=== PATIENT | male | born 1990 | race Hispanic/Latino ===

== ENCOUNTER 2021-05-22 00:16 | Emergency (ER) | payer OTHER ==
[~2021-05-22] VITALS: Ht 180.3 cm; Wt 98.4 kg
[2021-05-22 01:22] LABS: BASOPHILS % (AUTO) 0.4 % (0.0-5.0); EOSINOPHILS % (AUTO) 0.1 % (0.0-8.0); HEMATOCRIT 48.1 % (42-54); LYMPHOCYTES % (AUTO) 15.8 % (21.0-51.0); MEAN CORPUSCULAR HEMOGLOBIN 30.2 pg (27.0-33.0); MEAN CORPUSCULAR HGB CONC 33.7 g/dL (32.0-36.0); MEAN CORPUSCULAR VOLUME 89.6 fL (79-99); MONOCYTES % (AUTO) 8.5 % (3.0-13.0); NEUTROPHILS % (AUTO) 74.3 % (40.0-77.0); PLATELET COUNT (AUTO) 277 K/uL (130-400); RED BLOOD CELL COUNT(AUTO) 5.37 MIL/uL (4.50-6.20); RED CELL DISTRIBUTION WIDTH 12.6 % (11.0-15.5); WHITE BLOOD COUNT (AUTO) 12.7 K/uL (4.8-10.8)
[2021-05-22 01:24] LABS: APPEARANCE,URINE Clear (CLEAR); BILIRUBIN,URINE Negative (NEGATIVE); COLOR,URINE Yellow (YELLOW); GLUCOSE, URINE (UA) Negative (NEGATIVE); KETONES,URINE Trace mg/dL (NEGATIVE); LEUKOCYTE ESTERASE ,URINE Negative (NEGATIVE); NITRATE,URINE Negative (NEGATIVE); OCCULT BLOOD,URINE Small (NEGATIVE); PH,URINE 5.5 (5.0-8.0); PROTEIN,URINE POS 1+ mg/dL (NEGATIVE)
[2021-05-22 01:29] LABS: AMPHET/METH SCREEN,URINE POSITIVE (NEGATIVE); BARBITURATE SCREEN, URINE NEGATIVE (NEGATIVE); BENZODIAZEPINES SCREEN,URINE NEGATIVE (NEGATIVE); CANNABINOID SCREEN,URINE NEGATIVE (NEGATIVE); COCAINE SCREEN,URINE POSITIVE (NEGATIVE); OPIATE SCREEN,URINE NEGATIVE (NEGATIVE); PHENCYCLIDINE SCREEN,URINE NEGATIVE (NEGATIVE)
[2021-05-22] MEDS ORDERED: 0.9%NACL 1000ML 1,000 ML IV ONE ×2 (01:30→03:30)
[2021-05-22] MEDS ORDERED: LORAZEPAM 1 MG TABLET PO ONE (01:30)
[2021-05-22 01:31] LABS: RBC,URINE 0-1 /HPF (0-1)
[2021-05-22 01:32] LABS: BACTERIA,URINE Rare /HPF (None Seen); MUCUS,URINE Moderate LPF (None Seen); SQUAMOUS EPITHELIAL CELL,UR Few /HPF (0-2)
[2021-05-22 01:37] LABS: ALBUMIN 4.3 g/dL (3.5-5.0); BILIRUBIN,TOTAL 1.1 mg/dL (0.2-1.0); CREATININE 1.1 mg/dL (0.5-1.5); MAGNESIUM 1.3 mg/dL (1.80-2.40); TOTAL PROTEIN, SERUM 7.5 g/dL (6.0-8.3)
[2021-05-22 01:40] LABS: POTASSIUM 2.9 mmol/L (3.5-5.1)
[2021-05-22] MEDS ORDERED: POTASSIUM BICARB/CIT AC 25 MEQ TABLET.EFF ONE (01:46)
[2021-05-22] MEDS ORDERED: ONDANSETRON 4MG INJ ONE (01:46)
[2021-05-22] MEDS ORDERED: MAGNESIUM OXIDE 400 MG TABLET PO SCH ×2 (02:30→04:00)
[2021-05-22] MEDS ORDERED: MAGNESIUM OXIDE 400 MG TABLET PO ONE (02:54)
[2021-05-22 03:44] VITALS: BP 131/89
== END 2021-05-22 04:01 | disposition home or self-care (01) ==
LOC: EDH 00:16
DX: E83.42 Hypomagnesemia (principal); E86.0 Dehydration; E87.6 Hypokalemia; T40.5X5A Adverse effect of cocaine, initial encounter; T51.0X1A Toxic effect of ethanol, accidental (unintentional), initial encounter; I10 Essential (primary) hypertension; Z79.899 Other long term (current) drug therapy; F17.200 Nicotine dependence, unspecified, uncomplicated; Y99.8 Other external cause status; Y92.89 Other specified places as the place of occurrence of the external cause
CPT/HCPCS: 36415; 71045; 80053; 80305; 81001; 83735; 85025; 87088; 93005; 96374; 99285; J2405

== ENCOUNTER 2021-06-18 16:23 | Emergency (ER) | payer SELFPAY | END 2021-06-18 16:49 | disposition left against medical advice (07) | LOC: EDH 16:23 | DX: R06.02 Shortness of breath (principal); Z53.21 Procedure and treatment not carried out due to patient leaving prior to being seen by health care provider ==

== ENCOUNTER 2021-08-26 09:46 | Emergency (ER) | payer OTHER ==
[~2021-08-26] VITALS: Ht 180.3 cm; Wt 90.7 kg
[2021-08-26] MEDS ORDERED: HYDROXYZINE 50MG VIAL 50 MG/ML VIAL IM SCH (10:30)
[2021-08-26 10:34] VITALS: BP 127/79
== END 2021-08-26 11:02 | disposition home or self-care (01) ==
LOC: EDH 09:46
DX: F41.9 Anxiety disorder, unspecified (principal); F14.90 Cocaine use, unspecified, uncomplicated; F17.210 Nicotine dependence, cigarettes, uncomplicated
CPT/HCPCS: 93005; 96372; 99283; J3410

== ENCOUNTER 2021-12-24 07:17 | Emergency (ER) | payer OTHER ==
[2021-12-24] MEDS ORDERED: KETOROLAC 30MG VIAL (30MG/ML) IVP ONE (07:30)
[2021-12-24] MEDS ORDERED: ONDANSETRON 4MG INJ IVP ONE (07:30)
[2021-12-24] MEDS ORDERED: LACTATED RINGERS 1000ML 1,000 ML IV ONE (07:30)
[2021-12-24 07:48] LABS: AMPHET/METH SCREEN,URINE NEGATIVE (NEGATIVE); BARBITURATE SCREEN, URINE NEGATIVE (NEGATIVE); BENZODIAZEPINES SCREEN,URINE NEGATIVE (NEGATIVE); CANNABINOID SCREEN,URINE NEGATIVE (NEGATIVE); COCAINE SCREEN,URINE NEGATIVE (NEGATIVE); PHENCYCLIDINE SCREEN,URINE NEGATIVE (NEGATIVE)
[2021-12-24 07:51] LABS: BASOPHILS % (AUTO) 0.3 % (0.0-5.0); EOSINOPHILS % (AUTO) 0.8 % (0.0-8.0); HEMATOCRIT 47.5 % (42-54); LYMPHOCYTES % (AUTO) 26.8 % (21.0-51.0); MEAN CORPUSCULAR HEMOGLOBIN 29.7 pg (27.0-33.0); MEAN CORPUSCULAR HGB CONC 34.1 g/dL (32.0-36.0); MEAN CORPUSCULAR VOLUME 87.2 fL (79-99); MONOCYTES % (AUTO) 6.7 % (3.0-13.0); NEUTROPHILS % (AUTO) 64.5 % (40.0-77.0); PLATELET COUNT (AUTO) 261 K/uL (130-400); RED BLOOD CELL COUNT(AUTO) 5.45 MIL/uL (4.50-6.20); RED CELL DISTRIBUTION WIDTH 12.7 % (11.0-15.5); WHITE BLOOD COUNT (AUTO) 9.6 K/uL (4.8-10.8)
[2021-12-24 07:57] LABS: APPEARANCE,URINE CLEAR (CLEAR); BILIRUBIN,URINE NEGATIVE (NEGATIVE); COLOR,URINE YELLOW (YELLOW); GLUCOSE, URINE (UA) NEGATIVE (NEGATIVE); KETONES,URINE 40 mg/dL (NEGATIVE); LEUKOCYTE ESTERASE ,URINE NEGATIVE (NEGATIVE); NITRATE,URINE NEGATIVE (NEGATIVE); OCCULT BLOOD,URINE TRACE-INTACT (NEGATIVE); PROTEIN,URINE TRACE mg/dL (NEGATIVE)
[2021-12-24 08:01] LABS: BACTERIA,URINE Rare /HPF (None Seen); MUCUS,URINE Few LPF (None Seen); RBC,URINE 0-1 /HPF (0-1); SQUAMOUS EPITHELIAL CELL,UR Rare /HPF (0-2)
[2021-12-24 08:19] LABS: ALBUMIN 3.9 g/dL (3.5-5.0); CREATININE 0.9 mg/dL (0.5-1.5); POTASSIUM 3.1 mmol/L (3.5-5.1); TOTAL PROTEIN, SERUM 7.2 g/dL (6.0-8.3)
[2021-12-24] MEDS ORDERED: ONDA4TAB10 PO (10:15)
[2021-12-24 10:28] VITALS: BP 137/71
[2021-12-26 17:10] LABS: OPIATES SCREEN URINE Negative ng/mL (Cutoff=300)
== END 2021-12-24 10:46 | disposition home or self-care (01) ==
LOC: EDH 07:17
DX: R07.89 Other chest pain (principal); R11.10 Vomiting, unspecified; F17.200 Nicotine dependence, unspecified, uncomplicated; Z79.1 Long term (current) use of non-steroidal anti-inflammatories (NSAID)
CPT/HCPCS: 99284; 96374; 71045; 96361; 96375; 84484; 80053; 80305; 83690; 85025; 36415; 81001; J7120; J2405; J1885

== ENCOUNTER 2022-08-07 21:45 | Emergency (ER) | payer BC, OTHER ==
[~2022-08-07] VITALS: Ht 180.3 cm; Wt 92.1 kg
[~2022-08-07 21:45] MED LIST: ONDA4TAB10 PO
[2022-08-07 22:00] VITALS: BP 123/81
[2022-08-07] MEDS ORDERED: MECLIZINE HCL 25 MG TABLET PO ONE (23:00)
[2022-08-07 23:10] LABS: BASOPHILS % (AUTO) 0.4 % (0.0-5.0); EOSINOPHILS % (AUTO) 1.3 % (0.0-8.0); HEMATOCRIT 51.3 % (42-54); LYMPHOCYTES % (AUTO) 32.1 % (21.0-51.0); MEAN CORPUSCULAR HEMOGLOBIN 29.9 pg (27.0-33.0); MEAN CORPUSCULAR HGB CONC 33.7 g/dL (32.0-36.0); MEAN CORPUSCULAR VOLUME 88.8 fL (79-99); MONOCYTES % (AUTO) 6.2 % (3.0-13.0); NEUTROPHILS % (AUTO) 59.2 % (40.0-77.0); PLATELET COUNT (AUTO) 272 K/uL (130-400); RED BLOOD CELL COUNT(AUTO) 5.78 MIL/uL (4.50-6.20); RED CELL DISTRIBUTION WIDTH 11.9 % (11.0-15.5); WHITE BLOOD COUNT (AUTO) 9.6 K/uL (4.8-10.8)
[2022-08-07 23:25] LABS: APPEARANCE,URINE CLEAR (CLEAR); BILIRUBIN,URINE NEGATIVE (NEGATIVE); COLOR,URINE LIGHT-YELLOW (YELLOW); GLUCOSE, URINE (UA) NEGATIVE (NEGATIVE); KETONES,URINE 10 mg/dL (NEGATIVE); LEUKOCYTE ESTERASE ,URINE NEGATIVE Leu/uL (NEGATIVE); NITRATE,URINE NEGATIVE (NEGATIVE); PH,URINE 6.5 (5.0-8.0); PROTEIN,URINE NEGATIVE (NEGATIVE)
[2022-08-07 23:27] LABS: POTASSIUM 3.8 mmol/L (3.5-5.1)
[2022-08-07] MEDS ORDERED: PANT40TA54 PO (23:28)
[2022-08-07] MEDS ORDERED: MECL-160 PO (23:28)
[2022-08-07 23:30] LABS: OCCULT BLOOD,URINE NEGATIVE (NEGATIVE)
[2022-08-07 23:32] LABS: ALBUMIN 4.3 g/dL (3.5-5.0); TOTAL PROTEIN, SERUM 7.6 g/dL (6.0-8.3)
[2022-08-07 23:35] LABS: AMPHET/METH SCREEN,URINE NEGATIVE (NEGATIVE); BARBITURATE SCREEN, URINE NEGATIVE (NEGATIVE); BENZODIAZEPINES SCREEN,URINE NEGATIVE (NEGATIVE); CANNABINOID SCREEN,URINE NEGATIVE (NEGATIVE); COCAINE SCREEN,URINE NEGATIVE (NEGATIVE); OPIATE SCREEN,URINE NEGATIVE (NEGATIVE); PHENCYCLIDINE SCREEN,URINE NEGATIVE (NEGATIVE)
[2022-08-07 23:43] LABS: B-TYPE NATRIURETIC PEPTIDE < 5 pg/mL (0-100)
== END 2022-08-08 00:59 | disposition home or self-care (01) ==
LOC: EDH 21:45
DX: R07.89 Other chest pain (principal); R42 Dizziness and giddiness; R11.0 Nausea; F41.9 Anxiety disorder, unspecified; K21.9 Gastro-esophageal reflux disease without esophagitis; F17.200 Nicotine dependence, unspecified, uncomplicated; Z79.899 Other long term (current) drug therapy
CPT/HCPCS: 36415; 70450; 71045; 80053; 80305; 81003; 82550; 83690; 83880; 84484; 85025; 93005

== ENCOUNTER 2022-09-09 09:21 | Emergency (ER) | payer BC ==
[~2022-09-09] VITALS: Ht 180.3 cm; Wt 90.7 kg
[~2022-09-09 09:21] MED LIST changes: +MECL-160 PO; +PANT40TA54 PO
[2022-09-09 09:42] VITALS: BP 134/88
[2022-09-09] MEDS ORDERED: ONDANSETRON 4MG INJ IV ONE (10:00)
[2022-09-09] MEDS ORDERED: PANTOPRAZOLE 40 MG/VIAL IV ONE (10:00)
[2022-09-09] MEDS ORDERED: MAG/ALUM/SIMETH 30 ML UDCUP PO ONE (10:00)
[2022-09-09] MEDS ORDERED: LIDOCAINE HCL 2% VISCOUS 15 ML UDCUP PO ONE (10:00)
[2022-09-09] MEDS ORDERED: DICYCLOMINE HCL 10 MG/5 ML ML PO ONE (10:00)
[2022-09-09 10:22] LABS: BASOPHILS % (AUTO) 0.3 % (0.0-5.0); EOSINOPHILS % (AUTO) 0.1 % (0.0-8.0); HEMATOCRIT 53.3 % (42-54); LYMPHOCYTES % (AUTO) 38.3 % (21.0-51.0); MEAN CORPUSCULAR HEMOGLOBIN 29.4 pg (27.0-33.0); MEAN CORPUSCULAR HGB CONC 32.8 g/dL (32.0-36.0); MEAN CORPUSCULAR VOLUME 89.4 fL (79-99); PLATELET COUNT (AUTO) 346 K/uL (130-400); RED BLOOD CELL COUNT(AUTO) 5.96 MIL/uL (4.50-6.20); RED CELL DISTRIBUTION WIDTH 12.2 % (11.0-15.5)
[2022-09-09 10:46] LABS: POTASSIUM 3.5 mmol/L (3.5-5.1)
[2022-09-09 10:47] LABS: ALBUMIN 4.5 g/dL (3.5-5.0); TOTAL PROTEIN, SERUM 8.3 g/dL (6.0-8.3)
[2022-09-09] MEDS ORDERED: ESOM40CA PO (10:57)
== END 2022-09-09 11:20 | disposition home or self-care (01) ==
LOC: EDH 09:21
DX: K29.20 Alcoholic gastritis without bleeding (principal); F17.200 Nicotine dependence, unspecified, uncomplicated; Z79.899 Other long term (current) drug therapy
CPT/HCPCS: 99284; 96374; 96375; 84484; 80053; 83690; 85025; 36415; 93005; J2405; C9113

== ENCOUNTER 2022-09-11 16:06 | Emergency (ER) | payer BC ==
[~2022-09-11] VITALS: Ht 180.3 cm; Wt 90.7 kg
[2022-09-11 16:06] VITALS: BP 127/82
[~2022-09-11 16:06] MED LIST changes: +ESOM40CA PO
== END 2022-09-11 19:10 | disposition left against medical advice (07) ==
LOC: EDH 16:06
DX: R10.13 Epigastric pain (principal); Z53.1 Procedure and treatment not carried out because of patient's decision for reasons of belief and group pressure
CPT/HCPCS: 99281

== ENCOUNTER 2022-09-30 02:53 | Emergency (ER) | payer BC ==
[~2022-09-30] VITALS: Ht 180.3 cm; Wt 90.7 kg
[2022-09-30 02:55] VITALS: BP 122/83
== END 2022-09-30 05:03 | disposition left against medical advice (07) ==
LOC: EDH 02:53
DX: R10.9 Unspecified abdominal pain (principal); R42 Dizziness and giddiness; R11.0 Nausea; Z53.21 Procedure and treatment not carried out due to patient leaving prior to being seen by health care provider
CPT/HCPCS: 99281